=== PATIENT | female | born 1940 | race Native Hawaiian/Other Pacific Islander ===

== ENCOUNTER 2022-09-08 18:09 | Emergency (ER) | payer OTHER ==
[~2022-09-08] VITALS: Ht 167.6 cm; Wt 64.4 kg
[2022-09-08 18:09] VITALS: BP 128/54; TEMP 97.8
[2022-09-08 18:43] LABS: PLATELET COUNT 238 K/uL (152-353)
[2022-09-08 18:49] LABS: POTASSIUM 4.5 mmol/L (3.6-5.2)
[2022-09-09] MEDS ORDERED: TORSEMIDE10 MG PO (11:15)
[2022-09-09] MEDS ORDERED: METO50TA27 PO (11:16)
[2022-09-09] MEDS ORDERED: BUSPIRONE5 MG PO (11:17)
[2022-09-09] MEDS ORDERED: BUSPIRONE15 MG PO (11:17)
[2022-09-09] MEDS ORDERED: BUSPIRONE HYDR7.5 MG PO (11:19)
[2022-09-09] MEDS ORDERED: METFORMIN HYD1000 MG PO (11:20)
[2022-09-09] MEDS ORDERED: SERT50TA PO ×2 (11:21→11:26)
[2022-09-09] MEDS ORDERED: VITAMIN D32000 UNI1 PO (11:22)
[2022-09-09] MEDS ORDERED: TYLENOL325 MG PO (11:23)
[2022-09-09] MEDS ORDERED: QUETIAPINE200 MG PO (11:24)
[2022-09-09] MEDS ORDERED: ZOLOFT25 MG PO (11:26)
[2022-09-09] MEDS ORDERED: PRAVASTATIN10 MG PO (11:28)
[2022-09-09] MEDS ORDERED: QUET100T2 PO (11:29)
[2022-09-09] MEDS ORDERED: MELATONIN5 M2 PO (11:30)
[2022-09-09] MEDS ORDERED: MOBIC7.5 M1 PO (11:31)
[2022-09-09] MEDS ORDERED: MIRTAZAPINE7.5 MG PO (11:32)
[2022-09-09] MEDS ORDERED: OMEPRAZOLE DR20 MG PO (11:33)
[2022-09-09] MEDS ORDERED: FENOFIBRATE160 MG PO (11:34)
[2022-09-09] MEDS ORDERED: ZESTRIL40 MG PO (11:35)
[2022-09-09] MEDS ORDERED: MULTIVITAMI1 PO (11:37)
[2022-09-09] MEDS ORDERED: DIVA125C PO ×2 (11:38→11:39)
[2022-09-09] MEDS ORDERED: DONEPEZIL HYDRO10 M1 PO (11:42)
== END 2022-09-08 19:37 | disposition other institution (70) ==
LOC: ED 18:09
PROVIDERS: Family Medicine
DX: F03.911 Unspecified dementia, unspecified severity, with agitation (principal); U07.1 COVID-19; Z04.6 Encounter for general psychiatric examination, requested by authority
CPT/HCPCS: 36415; 80053; 85027; 87635; 93005; 99283; U0003